=== PATIENT | male | born 1950 ===

== ENCOUNTER 2018-03-11 08:27 | Day surgery (SDC) | payer OTHER | END 2018-03-11 14:25 | disposition home or self-care (01) | LOC: AMB-ENDOS 08:27 | DX: D12.2 Benign neoplasm of ascending colon (principal); K64.1 Second degree hemorrhoids ==

== ENCOUNTER 2018-04-06 15:53 | Inpatient (IN) | payer OTHER ==
[~2018-04-06] VITALS: Ht 162.6 cm; Wt 80.7 kg
[~2018-04-06 15:53] MED LIST: ASA81 MG PO; FLUCONAZOLE100 MG PO; LOSARTAN POTASS25 MG PO; OMEPRAZOLE20 M1 PO; SIMVASTATIN20 MG PO
== END 2018-04-15 22:00 | disposition home or self-care (01) | DRG 331 ==
LOC: SURG 04-12 09:16 → O/R 04-12 09:16 → SURH 04-12 11:00 → SURG 04-12 17:59
PROVIDERS: Colon & Rectal Surgery
PROC: 07TC4ZZ Resection of Pelvis Lymphatic, Percutaneous Endoscopic Approach (ICD-10-PCS; 2018-04-12)
PROC: 0DBU4ZZ Excision of Omentum, Percutaneous Endoscopic Approach (ICD-10-PCS; 2018-04-12)
PROC: 0DTF4ZZ Resection of Right Large Intestine, Percutaneous Endoscopic Approach (ICD-10-PCS; principal; 2018-04-12 11:00)
PROC: 4A033R1 Measurement of Arterial Saturation, Peripheral, Percutaneous Approach (ICD-10-PCS; 2018-04-14)
DX: D12.2 Benign neoplasm of ascending colon (principal); R09.02 Hypoxemia